=== PATIENT | male | born 1985 | race Caucasian/White ===

== ENCOUNTER 2022-10-08 22:01 | Emergency (ER) | payer BC, OTHER ==
[~2022-10-08] VITALS: Ht 177.8 cm; Wt 84.0 kg
[2022-10-08 22:15] VITALS: BP 125/85
[2022-10-08] MEDS ORDERED: TETRACAINE 0.5% OPHTH DROPS 4ML LEFTEYE ONE (23:45)
[2022-10-08] MEDS ORDERED: FLUORESCEIN SODIUM 1MG/STRIP LEFTEYE ONE (23:45)
== END 2022-10-09 00:11 | disposition home or self-care (01) ==
LOC: ER 22:01
DX: T15.92XA Foreign body on external eye, part unspecified, left eye, initial encounter (principal); Z88.5 Allergy status to narcotic agent; X58.XXXA Exposure to other specified factors, initial encounter; Y93.89 Activity, other specified; Y92.89 Other specified places as the place of occurrence of the external cause; Y99.8 Other external cause status
CPT/HCPCS: 99283